=== PATIENT | female | born 1965 | race Caucasian/White ===

== ENCOUNTER 2018-09-24 12:27 | Emergency (ER) | payer OTHER ==
[~2018-09-24] VITALS: Ht 154.9 cm; Wt 86.2 kg
[2018-09-24 13:55] LABS: BASO % 0.3 % (0.0-1.0); EOS # 0.1 10*3/uL (0.0-0.4); EOS % 1.1 % (1.0-4.0); HEMATOCRIT 43.1 % (37.0-47.0); HEMOGLOBIN 14.3 g/dl (12.0-16.0); LYMPH # 2.4 10*3/uL (1.3-4.4); LYMPH % 24.1 % (27.0-41.0); MEAN CELL VOLUME 91.5 fl (81.0-99.0); MEAN CORPUSCULAR HGB 30.4 pg (27.0-31.0); MEAN CORPUSCULAR HGB CONC 33.2 g/dl (33.0-37.0); MEAN PLATELET VOLUME 11.9 fl (9.6-12.3); MONO # 0.8 10*3/uL (0.1-1.0); MONO % 7.6 % (3.0-9.0); NEUT # 6.6 10*3/uL (2.3-7.9); NEUT % 66.4 % (47.0-73.0); PLATELET COUNT AUTOMATED 207 10*3/uL (130-400); RED BLOOD COUNT 4.71 10*6/uL (4.10-5.10); RED CELL DISTRI WIDTH 13.6 % (0-14.5); WHITE BLOOD COUNT 9.9 10*3/uL (4.8-10.8)
[2018-09-24 14:07] LABS: BILIRUBIN NEGATIVE (NEGATIVE); BLOOD 1+ (NEGATIVE); CLARITY CLEAR (CLEAR); COLOR YELLOW (YELLOW); GLUCOSE NEGATIVE (NEGATIVE); KETONE NEGATIVE (NEGATIVE); LEUKO ESTERASE TRACE (NEGATIVE); NITRITE NEGATIVE (NEGATIVE); SPECIFIC GRAVITY <= 1.005 (1.005-1.030); UROBILINOGEN 0.2 E.U./dl (0.2-1.0)
[2018-09-24 14:09] LABS: ALBUMIN 3.8 gm/dl (3.1-4.5); ALKALINE PHOSPHATASE 112 U/L (45-117); BUN 13 mg/dl (7-24); CHLORIDE 108 mmol/L (98-107); CREATININE 0.58 mg/dL (0.55-1.02); LIPASE 74 U/L (73-393); POTASSIUM 3.9 mmol/L (3.5-5.1); SGOT/AST 5 IU/L (3-35); SGPT/ALT 18 U/L (12-78); SODIUM 139 mmol/L (136-145)
[2018-09-24 14:30] LABS: ACT PARTIAL THROMBO TIME 22.1 SECONDS (20.8-31.5)
[2018-09-24 14:36] LABS: BACTERIA 1+; WBC 0-2 wbc/hpf (0-5)
[2018-09-24] MEDS ORDERED: ZOFRAN4 MG PO (16:15)
== END 2018-09-24 16:32 | disposition home or self-care (01) ==
LOC: ED 12:27
PROVIDERS: Physician Assistant
DX: R11.0 Nausea (principal); R68.83 Chills (without fever); R10.31 Right lower quadrant pain

== ENCOUNTER 2019-02-28 10:19 | Inpatient (IN) | payer OTHER ==
[~2019-02-28] VITALS: Ht 154.9 cm; Wt 76.2 kg
--- NOTE | ~2019-02-28 | DS ---
[place], [place] DISCHARGE SUMMARY NAME: DEBORAH SANCHEZ [facility] #: [id number] UNIT #: [id number] ROOM: 310 DOCTOR: REYMUNDO ANAYA MD BIRTHDATE: [birth year] DOS: 03/02/2019 CHIEF COMPLAINT: "I have just been so depressed." HISTORY OF PRESENT ILLNESS: This is a 53-year-old white female who presented to the Emergency Room at [facility] with a chief complaint of increased depression with suicidal thoughts and a plan to drive her car into a tree. The patient has been severely depressed since she was diagnosed with breast cancer and had a bilateral mastectomy. The patient endorsed multiple neurovegetative symptoms that include poor sleep and appetite, anergia, anhedonia, hopeless, helpless feelings, crying spells, and inability to cope. The patient has had multiple trials of SSRIs with no response. In fact, she has had a paradoxical response and that they significantly impaired her ability to sleep and made her more hyper. She is admitted now to rule out organic factors, to stabilize on medication, to engage in individual and story milieu activity and then to determine the least restrictive environment to which she could return. SUMMARY OF HOSPITAL COURSE: The patient was admitted to the unit where she was started on Remeron 15 mg at bedtime as an antidepressant that would rapidly improve sleep and appetite. Additionally, her vitamin B12 level on admission was low normal, so she was given a B12 injection of 1000 mcg monthly. The patient did sleep with the Remeron and felt amazingly well with it, stated that this is the best antidepressant that she has been on. She felt that with the improved sleep and improved energy, she was able to tackle a lot of what was on her plate. Additionally on the day of discharge, the patient had an interview for a job that she was anxious to go to and given the fact that she is so forward thinking and positive about the future. She was discharged then to have outpatient followup in my office. MENTAL STATUS AT DISCHARGE: The patient is alert and oriented to person, place, and time. Mood is euthymic. Affect is appropriate. She convincingly denied suicidal or homicidal thoughts. There were no self-injurious thoughts. There was no hypomania, lo or psychosis. Memory for the most part was intact. FINAL DIAGNOSES: Major depression, recurrent and dysthymic disorder. DISPOSITION: All of her prescriptions have been e-scribed to [facility]. She will have followup in my office. At the time of discharge, she was medically and psychiatrically stable. [place], [place] DISCHARGE SUMMARY NAME: DEBORAH SANCHEZ UNIT #: [id number] ROOM: 310 DOCTOR: REYMUNDO ANAYA MD BIRTHDATE: [birth year] REYMUNDO ANAYA MD CM:DISCHARG REYMUNDO ANAYA MD 03/02/1933 interface
--- NOTE | ~2019-02-28 | WRIGHTHP ---
[place], [place] PATIENT HISTORY AND PHYSICAL EXAM NAME: DEBORAH SANCHEZ [facility] #: [id number] UNIT #: [id number] ROOM: 310 DOCTOR: REYMUNDO ANAYA MD BIRTHDATE: [birth year] DOS: 03/01/2019 CHIEF COMPLAINT: "I have just been so depressed." HISTORY OF PRESENT ILLNESS: This is a 53-year-old white female who presented to the Emergency Room at [facility] with a chief complaint of increased depression with suicidal thoughts and a plan to drive her car into a tree. The patient reports ongoing depression since she was diagnosed with breast cancer and had bilateral mastectomy. The patient has endorsed significant depression with multiple neurovegetative symptoms that include poor sleep with difficulty falling asleep, sleep continuity disturbance, client support consultant awakening, anergia, anhedonia, hopeless, helpless feelings, crying spells, and inability to cope. The patient has had several trials of SSRIs, the most recently being Trintellix and reports a paradoxical response to them stating that the antidepressants have caused her to have a more significant sleep disturbance than previously, the patient was admitted now to rule out any organic factors, to engage in individual and story milieu activity, to re-stabilize on medication and then to return to the least restrictive environment. PAST MEDICAL HISTORY: Remarkable for the history of breast cancer with bilateral mastectomy, a history of conjunctivitis, major depression, recurrent and anxiety disorder, not otherwise specified. SOCIAL HISTORY: The patient denies any illicit drug use or alcohol consumption, but has been a cigarette smoker of 1 pack per day for at least the last 30 years. STRENGTHS: Ambulatory, good verbal skills. WEAKNESSES: Poor coping skills, chronic mental health issues. MENTAL STATUS: Upon admission, the patient is alert and oriented to person, place and time. Mood seems overwhelmingly depressed. Affect is rather constricted and blunted. She endorses multiple neurovegetative symptoms as well as fleeting suicidal thoughts. There is no presence of hypomania, lo or psychosis. Memory is fully intact. DIAGNOSES UPON ADMISSION: Major depression, recurrent, severe and dysthymic disorder. PLAN: The patient has already been started on Remeron 15 mg at bedtime. Of note, the patient did report she slept well through the night with the Remeron reporting only having some vivid dreams with it. Routine screening examinations also revealed her to have a low normal vitamin B12 level of 331. I will go ahead and treat with vitamin B12 injection 1000 mcg IM monthly. I will consult Dr. Theresa Gibson, psychologist, to engage in Counseling Services. We will engage also in individual and story milieu activity, returning to the least restrictive environment when psychiatrically stable. [place], [place] PATIENT HISTORY AND PHYSICAL EXAM NAME: DEBORAH SANCHEZ UNIT #: [id number] ROOM: 310 DOCTOR: REYMUNDO ANAYA MD BIRTHDATE: [birth year] REYMUNDO ANAYA MD CM:HISPHYS:PATIENT HISTORY AND PHYSICAL EXAMINATION 4 REYMUNDO ANAYA MD 03/01/1940 interface
[~2019-02-28 10:19] MED LIST: ZOFRAN4 MG PO
[2019-02-28 10:20] VITALS: BP 135/68
[2019-02-28 11:20] LABS: BILIRUBIN NEGATIVE (NEGATIVE); BLOOD 1+ (NEGATIVE); CLARITY CLEAR (CLEAR); COLOR STRAW (YELLOW); GLUCOSE NEGATIVE (NEGATIVE); KETONE NEGATIVE (NEGATIVE); LEUKO ESTERASE NEGATIVE (NEGATIVE); NITRITE NEGATIVE (NEGATIVE); SPECIFIC GRAVITY <= 1.005 (1.005-1.030); UROBILINOGEN 0.2 E.U./dl (0.2-1.0)
[2019-02-28 11:22] LABS: BASO # 0.1 10*3/uL (0.0-0.1); BASO % 0.5 % (0.0-1.0); EOS # 0.1 10*3/uL (0.0-0.4); EOS % 1.3 % (1.0-4.0); HEMOGLOBIN 14.9 g/dl (12.0-16.0); LYMPH # 2.7 10*3/uL (1.3-4.4); LYMPH % 27.2 % (27.0-41.0); MEAN CELL VOLUME 92.2 fl (81.0-99.0); MEAN CORPUSCULAR HGB 31.2 pg (27.0-31.0); MEAN CORPUSCULAR HGB CONC 33.9 g/dl (33.0-37.0); MEAN PLATELET VOLUME 10.9 fl (9.6-12.3); MONO # 0.6 10*3/uL (0.1-1.0); MONO % 5.7 % (3.0-9.0); NEUT # 6.4 10*3/uL (2.3-7.9); NEUT % 64.6 % (47.0-73.0); PLATELET COUNT AUTOMATED 229 10*3/uL (130-400); RED BLOOD COUNT 4.77 10*6/uL (4.10-5.10); RED CELL DISTRI WIDTH 12.9 % (0-14.5); WHITE BLOOD COUNT 9.9 10*3/uL (4.8-10.8)
[2019-02-28 11:27] LABS: URINE AMPHETAMINES < 1000 (1000ng/ml); URINE BARBITURATES < 200 (200ng/ml); URINE BENZODIAZEPINES > 200 (200ng/ml); URINE CANNABINOIDS (THC) < 50 (50ng/ml); URINE COCAINE < 300 (300ng/ml); URINE METHADONE < 300 (300ng/ml); URINE OPIATES < 300 (300ng/ml)
[2019-02-28 11:30] LABS: RBC 0-2 rbc/hpf (0-2); WBC 0-2 wbc/hpf (0-5)
[2019-02-28 11:31] LABS: URINE PHENCYCLIDINE < 25 (25ng/ml)
[2019-02-28 11:34] LABS: BUN 9 mg/dl (7-24); CHLORIDE 106 mmol/L (98-107); CREATININE 0.54 mg/dL (0.55-1.02); POTASSIUM 4.1 mmol/L (3.5-5.1); SODIUM 137 mmol/L (136-145)
[2019-02-28 11:35] LABS: ACETAMINOPHEN (TYLENOL) < 5.0 ug/ml (10-30); ETHYL ALCOHOL < 3.0 mg/dl (<3)
--- NOTE | 2019-02-28 13:05 | NUR ---
DANIEL ALEXIS AT THE PTS BEDSIDE AT THIS TIME.
--- NOTE | 2019-02-28 13:14 | NUR ---
PT IS EATING HER LUNCH TRAY AT THIS TIME. NO COMPLAINTS AT THIS TIME. DANIEL REUBEN IS GOING TO SEEK BED PLACEMENT FOR THE PT AT THIS TIME.
--- NOTE | 2019-02-28 13:20 | NUR ---
psychiatric assessment: met with client who is pleasant, a &ox4, she is having suicidal thoughts with a plan to drive her car into a tree, she recenlt, last week stopped her trintellix and she has been trying to get back into [facility] but she has not gotten a call back yet, so she is waiting and she felt so bad she came here, she has no inpatient admissions in the past and not suicide attempts, she can benefit from an inpatient admission, i will call and search for a bed. discussed with dr robins.
--- NOTE | 2019-02-28 13:57 | NUR ---
PT REQUESTING TO GO OUTSIDE AND SMOKE. SHE ADVISED THAT SHE CAN NOT AND A NICOTINE PATCH OFFERED. DOC MADE AWARE.
[2019-02-28 14:40] VITALS: BP 113/65
--- NOTE | 2019-02-28 14:45 | NUR ---
DEBORAH SANCHEZ a 53 year old F admitted via wheel chair from the [facility] EM[facility] ROOM as a voluntary admission. Arrived on unit at 1445. ALLERGIES: NKA. Vital signs are: [id number] 108/65. The client signed the following forms with stated understanding: Authorization For The Release of Medical Information, Clothing List, Consent to Voluntary Admission and Hospitalization, Consent and Release Forms/Receipt of Rights, Acknowledgement of Advance Directive Information, Behavioral Health Consent Form, and Informed Consent of Medications. Admitted under the services of Dr. JACLYN PERRY,[facility]. A search was conducted and hazardous articles were removed. Client was oriented to the unit. DILMA SUN PATIENT ALERT AND ORIENTED X4. ARRIVED ON UNIT VIA WHEELCHAIR ESCORTED BY THIS NURSE, MENTAL HEALTH SPECIALIST, AND SECURITY. PATIENT STATING THAT SHE CURRENTLY HAVING SUICIDAL IDEATION WITH A PLAN TO DRIVE HER CAR INTO A TREE. PATIENT STATES THAT SHE PHYSICALLY COULD NOT HURT HERSELF, THAT IS WHY SHE WOULD USE HER CAR. PATIENT TEARFUL. INTERACTIVE WITH STAFF AND FUTURE FOCUSED.
--- NOTE | 2019-02-28 15:04 | NUR ---
[facility] NOW CALLS, STATES THEY WILL ACCEPT PT. PT WILL SIGN VOLUNTARILY FOR HER ADMIT. MAJOR DEPRESSION RECURRENT IS DX, DR ANAYA ADMITS, ROOM 310/2. [facility] WILL ARRIVE SHORTLY TO DEPT FOR INTERVIEW.
[2019-02-28] MEDS ORDERED: VALIUM5 MG PO (15:38)
[2019-02-28] MEDS ORDERED: VITAMIN D22000 UNIT PO (15:40)
[2019-02-28] MEDS ORDERED: ARIMIDEX1 MG PO (15:41)
[2019-02-28] MEDS ORDERED: KLONOPIN0.5 MG PO (15:47)
[2019-02-28] MEDS ORDERED: NATURE'S BLEND F1 MG PO (15:47)
[2019-02-28] MEDS ORDERED: CALCIUM 500 +1 EAC3 PO (15:49)
[2019-02-28 15:51] VITALS: BP 108/65
--- NOTE | 2019-02-28 15:58 | NUR ---
DR. ANTOINE NOTIFIED OF NEW ADMISSION, DIAGNOSIS AND MEDICATIONS UPDATED FOR [facility]. PATIENT WILL BE UNDER THE CARE OF DR. LIN.
[2019-02-28 16:18] VITALS: BP 108/65
--- NOTE | 2019-02-28 16:51 | NUR ---
DR. ANAYA AWARE OF PATIENTS SUICIDE SCORE OF 68. DR. ANAYA STATED THAT PATIENT IS TO BE A LINE OF SIGHT WHILE AWAKE.
--- NOTE | 2019-02-28 16:56 | NUR ---
DR. HERNANDEZ ON FLOOR TO ASSESS PT, UPDATE PROVIDED.
[2019-02-28 19:25] VITALS: BP 120/62
--- NOTE | 2019-03-01 02:07 | NUR ---
P-DEPRESSED MOOD WITH SUICIDAL IDEATIONS. I- ASSESS ORIENTATION, MOOD, AND BEHAVIOR. PROVIDE 1:1 FOR VENTILATION OF FEELINGS WITH EMOTIONAL SUPPORT NEEDED. ASSESS FOR SI, INTENT, AND PLAN. ASSESS FOR HI, HALLUCINATIONS, PARANOIA, AND DELUSIONS. ENCOURAGE MEDICATION COMPLIANCE AND EDUCATE. MAINTAIN LOS ORDERED. MONITOR SLEEP. R-PATIENT ALERT AND ORIENTED X4. PT CALM, ISOLATIVE TO SELF SINCE BEGINNING OF SHIFT, ONLY COMING DOWN TO DINING ROOM FOR SNACK. PT SARCASTIC WITH INAPPROPRIATE LAUGHTER DURING 1:1 WITH THIS NURSE, GUARDED. WHEN QUESTIONED ABOUT SUICIDAL IDEATIONS PATIENT STATED "YEAH I FEEL LIKE RUNNING MY CAR IN TO A TREE BECAUSE IM HERE RIGHT NOW". PT PROVIDED WITH EMOTIONAL SUPPORT, INFORMED IF THOUGHTS ARISE TO HARM SELF TO NOTIFY STAFF, PT CONTRACTED FOR SAFETY. PT DENIES HI, HALLUCINATIONS, OR PAIN. NO PARANOIA/DELUSIONS OBSERVED. PT MEDICATION COMPLIANT WITHOUT DIFFICULTY AFTER REVIEW. NO OTHER PHYSICAL COMPLAINTS NOTED. PT CURRENTLY LAYING DOWN WITH EYES CLOSED, RESPIRATIONS EASY AND REGULAR, NO SIGNS OR SYMPTOMS OF DISTRESS NOTED. P-CONTINUE TO MONITOR MOOD AND BEHAVIORS. PROVIDE 1:1 FOR VENTILATION OF FEELINGS WITH EMOTIONAL SUPPORT NEEDED. ENCOURAGE MEDICATION COMPLIANCE AND EDUCATE. MAINTAIN LOS ORDERED.
--- NOTE | 2019-03-01 03:58 | NUR ---
24 HOUR CHART CHECK COMPLETED.
--- NOTE | 2019-03-01 06:06 | NUR ---
PATIENT OBSERVED THROUGHOUT THE NIGHT TO HAVE SLEPT APPROX 7 HOURS WITH NO AWAKENINGS OR SIGNS AND SYMPTOMS OF DISTRESS NOTED.
--- NOTE | 2019-03-01 07:32 | NUR ---
DR. CANCINO ON UNIT TO ASSESS PATIENT.
--- NOTE | 2019-03-01 08:00 | NUR ---
Treatment Plan meeting with Dr. Ferrell, RN, AT, SW and Editor In Chief. Plan for discharge Wednesday. Pt. is from home and will return home at discharge.
[2019-03-01 08:06] LABS: VITAMIN D, 25-HYDROXY 34.5 ng/mL (30-100)
[2019-03-01 08:08] VITALS: BP 107/69
[2019-03-01 08:10] VITALS: BP 107/69
--- NOTE | 2019-03-01 11:56 | NUR ---
AM GROUP PT DID NOT ATTEND MORNING GROUP THERAPY. PT WAS TALKING WITH SW SHE JUST ARRIVED ON THE UNIT LAST NIGHT
--- NOTE | 2019-03-01 12:11 | NUR ---
PT REFUSING B12 INJECTION AT THIS TIME. STATES SHE HAS TAKEN IT IN THE PAST AND COULD NOT SLEEP. WOULD LIKE TO DELAY UNTIL TOMORROW AFTER SPEAKING WITH DR. ANAYA.
--- NOTE | 2019-03-01 13:19 | NUR ---
1:1 with pt this AM. Pt shared about her history and the wants for her future. Pt is trying to figure out exactly what she wants to pursue for her future and is struggling with this. Pt also shared that she thought that after she finished her CA treatment, she thought that her life would return to exactly how it was prior to the CA diagnosis. Pt also shared about the difficulties of her childhood. Patient has been receiving counseling at [facility] with Teri Cobos. Patient also reached out to a previous counselor, Reynold Allen, who is now at the [facility]. The plan is for pt to meet with Reynold on a weekly basis, who will act as a ocean lifeguard for patient. Pt also attends [employer]. Discussed goal setting while pt is at [facility]. Pt shared that her Church sue is very important to her. Discussed Church supports beyond [employer]. Pt denies suicidal ideations at this time. Pt is motivated for change but also voiced frustration in that it seems to be taking a long time for pt to feel better. Empathized with pt and educated pt about the change process.
--- NOTE | 2019-03-01 13:52 | NUR ---
CLINICALS FAXED TO [facility] AT [phone] FOR AUTHORAZATION.
--- NOTE | 2019-03-01 15:34 | NUR ---
PM GROUP/LEISURE INTERESTS PT ATTENDED AFTERNOON GROUP THERAPY AND PARTICIPATED BY COLORING, WRITING AND SOCIALIZING. PT EXPRESSED NO SUICIDAL IDEATIONS WHILE IN GROUP. PT IS FORWARD THINKING AND RECEPTIVE TO COPING STRATEGIES.
--- NOTE | 2019-03-01 17:15 | NUR ---
PT DENIES SI AT THIS TIME. PREOCCUPIED WITH DESIRE TO LEAVE. PT ASSESSED FOR ORIENTATION LEVEL, MOOD AND AFFECT. ASSESSED FOR SI, INTENT OR PLAN. ASSESSED FOR HALLUCINATIONS OR DELUSIONS. ASSESSED FOR SLEEP QUALITY AND APPETITE. PT ALERT, ORIENTED X 4. MOOD IS STABLE, AFFECT IS APPROPRIATE, VERBAL RESPONSES APPROPRIATE TO CONTENT. PT DENIES SI, INTENT OR PLAN, STATING "NO, I DON'T FEEL LIKE THAT TODAY". PT REPEATEDLY STATES SHE WISHES TO GO HOME. NO HALLUCINATIONS OR DELUSIONS APPARENT, PT DENIES. STATES THAT SHE IS SLEEPING BETTER. PT STATES THAT HER PROBLEMS WORSEN WHEN SHE DOES NOT GET ENOUGH SLEEP AT NIGHT. PT APPETITE GOOD PER RECORDS. WILL CONTINUE TO ASSESS PT FOR DEPRESSED MOOD AND SI, INTENT OR PLAN. WILL CONTINUE TO ENCOURAGE MEDICATION COMPLIANCE. WILL CONTINUE TO MONITOR SLEEP QUALITY AND APPETITE. Q15 MIN MONITORING APPROPRIATE PER DR. ANAYA.
[2019-03-01 19:31] VITALS: BP 116/64
--- NOTE | 2019-03-01 22:24 | NUR ---
P-DEPRESSED MOOD I-PROVIDED 1:1 WITH EMOTIONAL SUPPORT. ASSESSED FOR SI, INTENT, AND PLAN. ENCOURAGED MEDICATION COMPLIANCE AND EDUCATED. R-BRIGHTER AFFECT NOTED THIS SHIFT THAN PREVIOUS ONE THIS RN WORKED, PT LESS ISOLATIVE.INTERACTIVE WITH STAFF AND PEERS. PT STATED THAT SHE WAS FEELING BETTER TODAY AND THINKS ITS BECAUSE SHE NO LONGER TAKES CERTAIN MEDICATIONS SHE WAS PRESCRIBED PREVIOUSLY. PT DENIES SI, CONTRACTED FOR SAFETY. P-CONTINUE TO MONITOR MOOD AND BEHAVIORS. PROVIDE 1:1 FOR VENTILATION OF FEELINGS. ENCOURAGE MEDICATION COMPLIANCE AND EDUCATE. MAINTAIN Q 15 MIN CHECKS.
--- NOTE | 2019-03-02 05:00 | NUR ---
24 HOUR CHART CHECK COMPLETED.
--- NOTE | 2019-03-02 05:57 | NUR ---
PATIENT OBSERVED ON Q 15 MIN CHECKS TO HAVE SLEPT APPROX 8 HOURS THROUGHOUT THE NIGHT WITH NO AWAKENINGS OR SIGNS AND SYMPTOMS OF DISTRESS NOTED.
[2019-03-02 07:42] VITALS: BP 108/64
--- NOTE | 2019-03-02 08:25 | NUR ---
PT APPEARS ANXIOUS. REMAINS PREOCCUPIED WITH LEAVING AT THIS TIME. ASSESSED FOR ORIENTATION LEVEL, MOOD, AND AFFECT. ASSESSED FOR SI, INTENT OR PLAN. ASSESSED FOR HALLUCINATIONS OR DELUSIONS/PARANOIA. ASSESSED FOR SLEEP QUALITY AND APPETITE. MEDICATIONS ADMINISTERED PER ORDERS. PT ALERT, ORIENTED X 4. MOOD APPEARS SOMEWHAT ANXIOUS, AFFECT IS BLUNTED. PT DENIES SI, INTENT OR PLAN. PT STATES SHE "FEELS GOOD AND JUST WANTS TO GO HOME". PT EDUCATED ON NICOTINE PATCH, ASKED ABOUT CRAVINGS, STATES "IT'S FINE, I WANT TO GO HOME." PER REPORT, PT SLEPT T/O NIGHT, APPETITE GOOD. MEDICATION COMPLIANT WITHOUT DIFFICULTY. DR. ANAYA NOTIFIED OF PT'S PREOCCUPATION WITH LE[employer]. WILL REDIRECT PT NEEDED. WILL CONTINUE TO ENCOURAGE MEDICATION COMPLIANCE. Q 15 MIN MONITORING PER POLICY.
--- NOTE | 2019-03-02 08:30 | NUR ---
Treatment Plan meeting with Dr. Ferrell RN, AT, SW and Television Cameraman. Plan for discharge today. Pt. to return home. Follow up appointments have been scheduled. Pt. will drive home, car is in Parking Lot.
--- NOTE | 2019-03-02 09:14 | NUR ---
DR. CANCINO MADE AWARE OF PT BEING DISCHARGED TODAY.
[2019-03-02] MEDS ORDERED: MIRTAZAPINE15 M2 PO (09:15)
[2019-03-02] MEDS ORDERED: B121000 MCG/1 IM (09:15)
[2019-03-02] MEDS ORDERED: VITAMIN D32000 UNI1 PO (09:15)
--- NOTE | 2019-03-02 11:19 | NUR ---
DR. CANCINO ON UNIT TO ASSESS PATIENT.
--- NOTE | 2019-03-02 11:47 | NUR ---
all discharge paperwork reviewed with pt. pt verbalized understanding. pt received Vitamin B12 to right deltoid, tolerated well. pt discharged off unit at this time to private vehicle owned by self via wheelchair. escorted by mental health worker. all belongings and paperwork sent with pt. pt stated she had everything she came with. states goodbye and that she will call if she needs anything.
--- NOTE | 2019-03-02 13:39 | NUR ---
Patient discharged today to home. Follow-up was scheduled with [facility] for psychiatry and counseling. Pt denied suicidal ideations at time of discharge. Pt is future-oriented as she plans on working with a wildlife control operator to assist pt in exploring her future. 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
== END 2019-03-02 11:47 | disposition home or self-care (01) | DRG 885 ==
LOC: ED 10:19 → 3N 15:05
PROVIDERS: Emergency Medicine; ADMIT Psychiatry & Neurology Psychiatry
DX: F33.3 Major depressive disorder, recurrent, severe with psychotic symptoms (principal); R45.851 Suicidal ideations; F34.1 Dysthymic disorder; F41.9 Anxiety disorder, unspecified; E66.9 Obesity, unspecified; Z85.3 Personal history of malignant neoplasm of breast; Z90.13 Acquired absence of bilateral breasts and nipples; Z81.8 Family history of other mental and behavioral disorders; Z79.899 Other long term (current) drug therapy; Z68.31 Body mass index [BMI] 31.0-31.9, adult

== ENCOUNTER 2020-08-22 17:17 | Emergency (ER) | payer OTHER ==
[~2020-08-22] VITALS: Ht 154.9 cm; Wt 81.6 kg
[~2020-08-22 17:17] MED LIST changes: +ARIMIDEX1 MG PO; +B121000 MCG/1 IM; +CALCIUM 500 +1 EAC3 PO; +KLONOPIN0.5 MG PO; +MIRTAZAPINE15 M2 PO; +NATURE'S BLEND F1 MG PO; +VALIUM5 MG PO; +VITAMIN D22000 UNIT PO; +VITAMIN D32000 UNI1 PO
== END 2020-08-22 18:19 | disposition home or self-care (01) ==
LOC: ED 17:17
DX: T78.40XA Allergy, unspecified, initial encounter (principal); F41.9 Anxiety disorder, unspecified; F32.9 Major depressive disorder, single episode, unspecified; E78.00 Pure hypercholesterolemia, unspecified; Z79.899 Other long term (current) drug therapy; Z90.13 Acquired absence of bilateral breasts and nipples; X58.XXXA Exposure to other specified factors, initial encounter